=== PATIENT | male | born 2005 | race Asian ===

== ENCOUNTER 2024-04-28 20:36 | Emergency (ER) | payer BC ==
[2024-04-28] MEDS ORDERED: Bacitracin 1 PK ONE (21:58)
[2024-04-28] MEDS ORDERED: Boostrix 0.5 ML (Tdap) VIAL (>/=7 yrs of age) ONE (22:27)
[2024-04-28] MEDS ORDERED: Sulfameth/Trimethoprim DS 800-160mg TAB ONE (22:38)
[2024-04-28] MEDS ORDERED: Doxycycline 100 MG CAP PO SCH (23:30)
== END 2024-04-28 23:20 | disposition home or self-care (01) ==
LOC: CSHERS 20:36
DX: L03.032 Cellulitis of left toe (principal); S91.111D Laceration without foreign body of right great toe without damage to nail, subsequent encounter; Z23 Encounter for immunization; Z55.6 Problems related to health literacy; W26.8XXA Contact with other sharp object(s), not elsewhere classified, initial encounter
CPT/HCPCS: 90471; 90715